=== PATIENT | male | born 1990 | race Caucasian/White ===

== ENCOUNTER 2017-08-05 08:29 | Day surgery (SDC) | payer OTHER ==
[2017-08-02 08:54] VITALS: BMI 24.3
[2017-08-05] MEDS ORDERED: Ondansetron HCl/PF 4 MG/2 ML Vial ONE (08:54)
[2017-08-05] MEDS ORDERED: Glycopyrrolate 0.2 MG/ML 5 ML SYRINGE ONE (08:54)
[2017-08-05] MEDS ORDERED: Lidocaine 1% PF 5 ML VIAL ONE (08:54)
[2017-08-05] MEDS ORDERED: Propofol 200 MG/20 ML VIAL ONE (08:54)
[2017-08-05] MEDS ORDERED: Dexamethasone 20 MG/5 ML VIAL ONE (08:54)
[2017-08-05] MEDS ORDERED: CEFAZOLIN/Water 2 GM/20 ML SYRINGE ONE (10:32)
[2017-08-05] MEDS ORDERED: Midazolam HCl 2 mg/2 ml Vial ONE (10:32)
[2017-08-05 10:42] LABS: Hematocrit 43.9 % (42.0-52.0); Mean Platelet Volume 8.9 fL (7.4-10.4); Red Blood Cell (RBC) Count 4.95 mill/uL (4.70-6.10); White Blood Cell (WBC) Count 6.1 thou/uL (4.8-10.8)
[2017-08-05 10:59] LABS: Anion Gap 11 mmol/L (10-20); BUN (Urea Nitrogen) 24 mg/dL (8.9-20.6); Calc. Creatinine Clearance 156 mL/min (70-130); Calcium 9.6 mg/dL (7.8-10.44); Carbon Dioxide 30 mmol/L (22-29); Chloride 104 mmol/L (98-107); Estimated GFR-MDRD Greater than 90
[2017-08-05] MEDS ORDERED: Fentanyl 250 MCG/5 ML VIAL ONE (11:17)
[2017-08-05] MEDS ORDERED: HYDROmorphone 0.5 MG/0.5 ML SYRINGE ONE (11:17)
--- NOTE | 2017-08-05 12:57 | OP ---
DATE OF PROCEDURE: 08/05/2017 SURGEON: Jonathan Chase M.D. [employer] ATTENDANT: Carson Canales PROCEDURE PERFORMED: Left L5-S1 discectomy. PROCEDURE IN DETAIL: The patient was brought to the operating room, intubated. He was rolled in the prone position on gel-filled chest rolls. Incision was made exposing L5 and S1 on the left and our level was confirmed by x-ray. We performed left L5-S1 hemilaminectomy, identified the yellow ligamen t and removed it and expose left S1 and the medial thecal sac. Beneath this was a disk bulge that wa s completely debrided. A complete decompression was achieved. The wound was extensively irrigated, immaculate hemostasis was secured. Vancomycin powder was applied and the wound was closed in anatomi c layers.
[2017-08-05] MEDS ORDERED: HYDROcodone/Acetaminophen 5/325 mg Tablet ONE (14:33)
== END 2017-08-05 15:37 | disposition home or self-care (01) ==
LOC: SDC 08:29
PROVIDERS: ATTEND Neurological Surgery
PROC: 01NB0ZZ Release Lumbar Nerve, Open Approach (ICD-10-PCS; principal; 2017-08-05)
PROC: 0ST20ZZ Resection of Lumbar Vertebral Disc, Open Approach (ICD-10-PCS; principal; 2017-08-05)
DX: M54.17 Radiculopathy, lumbosacral region (principal); Z98.818 Other dental procedure status; Z98.890 Other specified postprocedural states; Z87.891 Personal history of nicotine dependence; Z86.14 Personal history of Methicillin resistant Staphylococcus aureus infection
CPT/HCPCS: 80048; 85027; 93005; 93010; J0131; J1100; J1170; J2001; J2250; J2405; J2704; J3010; J3370